=== PATIENT | female | born 1975 | race Caucasian/White ===

== ENCOUNTER → 2016-12-12 | Outpatient (CLI) | payer OTHER ==
[~2016-12-12] MED LIST: CIPRO PO; DEXILANT60 MG PO; DIAMOX SEQUELS500 MG PO; FLOMAX0.4 M1 PO; FLOMAX0.4 MG PO; HYDROCODON-ACE1 EAC9 PO; MOTRIN600 M2 PO; NEXIUM PO; PERCOCET5/325 PO; PHENERGAN25 M1 PO; TOPROL XL PO; TYLENOL325 M1 PO; ZITHROMAX PO
--- NOTE | ~2016-12-12 | MR113 ---
[facility]. [facility] A Service of [facility] & [facility] RADIOLOGY TEXT RESULTS PATIENT: VY CARVALHO LOCATION: [facility] : 73 UNIT #: [id number] AGE: [address]: Talib Ruiz MD SEX: F ORDER DR: [id number] [place] [id number] O MR#: [id number] Acc #: [id number] NAME: VY CARVALHO : 1975 SEX: F STUDY DATE/TIME: 12/12/2016 14:50 UNIT: [facility] ROOM: STUDY DESCRIPTION: MR Lumbar Wo Contrast Attending Physician: Talib Ruiz M.D. Referring Physician: Talib Ruiz M.D. Ordering Physician: Talib Ruiz M.D. Primary Care Physician: Kelsey Ruiz M.D. MRI CENTER REPORT This report is preliminary unless electronic signature is present. 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 No history of cancer. COMMENT MRI of the lumbar spine performed without contrast using routine 1.5T wide-bore imaging technique. There is no prior. Sagittal alignment is normal. Bone marrow signal intensity is normal. The conus medullaris terminates at L1-2 and is normal. Subtle, age-appropriate disc desiccation at L5-S1. At L1-2, no significant abnormality. At L2-3, no significant abnormality. At L3-4, mild bilateral facet hypertrophy and ligamentum flavum thickening. Minimal concentric disc bulge. No canal or foraminal impingement. At L4-5, mild facet degenerative change bilaterally with ligamentum flavum thickening. Minimal posterior disc bulging but no canal stenosis. Only mild right inferior foraminal narrowing. At L5-S1, mild right-sided facet degenerative change, mild broad posterior disc bulge more prominent right fyechdispd-uk-yocnsiiclyzcsr location. No canal stenosis. Very mild mass effect on the right lateral recess. Mild right foraminal narrowing. STS. [facility] A Service of [facility] & [facility] RADIOLOGY TEXT RESULTS PATIENT: VY CARVALHO LOCATION: [facility] : 73 UNIT #: [id number] AGE: [address]: Talib Ruiz MD SEX: F ORDER DR: IMPRESSION Relatively mild lumbar degenerative changes, details provided above. No evidence for lumbar canal stenosis. See comment. Dictated by... Nolvia Baldwin M.D. THIS IS AN ELECTRONICALLY VERIFIED REPORT Nolvia Baldwin M.D. at 12/13/2016 12:36 PM Gail TD: 12/13/2016 12:08 JOB #: [id number] MRI CENTER REPORT Page 1 of 1
--- NOTE | ~2016-12-12 | MR32 ---
[facility] A Service of [facility] RADIOLOGY TEXT RESULTS PATIENT: VY CARVALHO LOCATION: [facility] : 73 UNIT #: [id number] AGE: [address]: Talib Ruiz MD SEX: F ORDER DR: [id number] [place] [id number] O MR#: [id number] Acc #: [id number] NAME: VY CARVALHO : 1975 SEX: F STUDY DATE/TIME: 12/12/2016 14:16 UNIT: [facility] ROOM: STUDY DESCRIPTION: MR Cervical Wo Contrast Attending Physician: Talib Ruiz M.D. Referring Physician: Talib Ruiz M.D. Ordering Physician: Talib Ruiz M.D. Primary Care Physician: Kelsey Ruiz M.D. MRI CENTER REPORT This report is preliminary unless electronic signature is present. EXAM Cervical spine MRI without. HISTORY Workman's comp injury lifting a patient, injured her neck 12/06/2016. [place] electric tingling, sharp, and radiating down left upper extremity and left lower extremity a week. Worse yesterday and today. No cancer history. COMMENT MRI of the cervical spine was performed without contrast using routine 1.5T wide-bore imaging technique. There is no prior. Sagittal alignment is normal. Mild loss of intervertebral disc height at C6-7. Bone marrow signal intensity unremarkable. Cervical cord is normal in size and signal intensity and there is no Chiari I malformation. Borderline cerebellar tonsillar ectopia noted. At C2-3, no canal or foraminal impingement. Mild right-side facet degenerative change. At C3-4, minimal posterior disc bulging. No canal or foraminal impingement. At C4-5, no significant abnormality. At C5-6, minimal disc bulging. No canal or foraminal impingement. At C6-7, small broad right paramedian protrusion/extrusion with mild flattening of the right anterior thecal sac but no canal stenosis. No foraminal impingement. [facility] A Service of [facility] RADIOLOGY TEXT RESULTS PATIENT: VY CARVALHO [id number] [birth year] UNIT #: [id number] AGE: [address]: Talib Ruiz MD SEX: F ORDER DR: At C7-T1, no significant abnormality. IMPRESSION Cervical degenerative change most significant appearing radiographically at C6-7, where there is a small right paramedian protrusion/extrusion with some flattening of the anterior thecal sac. There is no cervical canal stenosis. Cord signal intensity is normal. See above. Dictated by... Nolvia Baldwin M.D. THIS IS AN ELECTRONICALLY VERIFIED REPORT Nolvia Baldwin M.D. at 12/13/2016 12:36 PM JONATHAN/vivien TD: 12/13/2016 12:14 JOB #: [id number] MRI CENTER REPORT Page 1 of 1
== END | disposition home or self-care (01) ==
LOC: SMRI 11:33
DX: M54.12 Radiculopathy, cervical region (principal); M54.16 Radiculopathy, lumbar region; M47.22 Other spondylosis with radiculopathy, cervical region; M50.123 Cervical disc disorder at C6-C7 level with radiculopathy; M47.26 Other spondylosis with radiculopathy, lumbar region
CPT/HCPCS: 72141; 72148